=== PATIENT | female | born 1940 | race Caucasian/White ===

== ENCOUNTER 2016-08-04 18:32 | Outpatient (CLI) | payer OTHER ==
--- NOTE | 2016-08-05 10:20 | Diagnostic Imaging Report ---
CT scan of the brain without contrast History: Headache, dizziness Total DLP equals 605 CTDI equals 34.9 Axial sections were obtained from the base of the skull to the vertex. There is a normal ventricular system size. There is a cavum septa pellucida. No focal parenchymal lesions are seen. No evidence of any mass effect or shift of midline structures. No extra-axial masses or abnormal fluid collections. Impression: No acute abnormalities
== END 2016-08-04 20:15 | disposition home or self-care (01) ==
LOC: RAD 18:32
PROVIDERS: ATTEND Emergency Medicine
DX: R42 Dizziness and giddiness (principal); R51 Headache
CPT/HCPCS: 70450-TC